=== PATIENT | female | born 1940 | race Caucasian/White ===

== ENCOUNTER 2022-06-09 10:53 | Inpatient (IN) ==
[2022-06-09 12:28] LABS: Basophils # 0.3 10*3/uL (0.0-0.2); Basophils % 1.6 % (0.0-0.8); Eosinophils # 0.1 10*3/uL (0.0-0.87); Eosinophils % 0.4 % (0.00-10.9); Hematocrit 33.3 VOL% (35.7-47.0); Hemoglobin 11.1 GM/DL (12.0-16.0); Immature Granulocytes % 4.1 %; Immature Granulocytes Absolute 0.66 #; Lymphocytes # 6.5 10*3/uL (1.4-4.0); Lymphocytes % 40.6 % (21.3-54.2); Mean Corpuscular HGB Conc 33.3 GM/DL (32-36); Mean Corpuscular Volume 110.6 FL (87-102); Mean Platelet Volume 11.5 FL (9.6-12.0); Monocytes # 3.1 10*3/uL (0.11-0.8); Monocytes % 19.6 % (1.7-12.7); NRBC # 0.73 10*3/uL; Neutrophils % 33.7 % (38.7-73.9); Platelet Count 200 T/CUMM (130-400); Red Blood Count 3.01 MC/CUMM (3.8-5.5); Red Cell Distribution Width 17.7 % (9.3-17.3); White Blood Count 15.9 T/CUMM (4-12)
[2022-06-09 12:43] LABS: Albumin 2.7 G/DL (3.4-5.0); Bilirubin,Total 0.8 MG/DL (0.20-1.00); Osmolality,Calculated 299.5 MOS/KG (273-304); Total Protein 6.4 G/DL (6.4-8.2)
[2022-06-09 12:53] LABS: Band Neutrophils 4 % (0-10); Lymphocytes 37 % (20-55); Metamyelocytes 3 %; Myelocytes 1 %; Nucleated Red Blood Cells 5 /100 WBC (0-5); Total Cells Counted 100
[2022-06-09 12:55] LABS: Platelet Estimate Normal
[2022-06-09 12:56] LABS: Anisocytosis 1+; Pappenheimer Bodies 1+
[2022-06-09 12:58] LABS: Polychromasia 1+
[2022-06-09 17:20] LABS: Free T4 (Free Thyroxine) 1.23 NG/DL (0.76-1.46)
[2022-06-09] MEDS ORDERED: ONDANSETRON 4 MG/2 ML VIAL IV PRN (17:26)
[2022-06-09] MEDS: cefTRIAXone 1,000 MG in SODIUM CHLORIDE 0.9% 100 ML IV SCH (18:50)
[2022-06-09] MEDS: AZITHROMYCIN INJ 500 MG in SODIUM CHLORIDE 0.9% 250 ML IV SCH (21:09)
[2022-06-09] MEDS: INSULIN GLARGINE 100 UNIT/ML SUBCUT SCH (21:10)
[2022-06-09] MEDS: TIMOLOL 0.5% OPH SOLN 5 ML BOTTLE BOTH EYES SCH (21:10)
[2022-06-09] MEDS: DOCUSATE SODIUM 100 MG CAPSULE PO SCH (21:10)
[2022-06-09] MEDS: SODIUM BICARBONATE 650 MG TABLET PO SCH (21:10)
[2022-06-09] MEDS: ENOXAPARIN 30 MG/0.3 ML SYRINGE SUBCUT SCH (21:10)
[2022-06-10 03:11] LABS: Bacteria,Urine Occasional /HPF (Few); Bilirubin,Urine Negative (Negative); Glucose,Urine (UA) 100 mg/dL (Negative); Ketones,Urine Negative (Negative); Mucus,Urine Occasional /LPF (Occasional); Nitrite,Urine Positive (Negative); Protein,Urine 100 mg/dL (Negative); RBC,Urine 34 /HPF (0-4); Urine Appearance Slightly Cloudy (Clear); Urine Color Yellow (Yellow); Urine Specific Gravity 1.015 (1.001-1.035); Urine pH 5.5 (4.5-8.0)
[2022-06-10 03:12] LABS: Blood, Urine Trace mg/dL (Negative); Urine Urobilinogen 0.2 eU/dL (<2.0)
[2022-06-10 05:10] LABS: Basophils # 0.2 10*3/uL (0.0-0.2); Basophils % 1.4 % (0.0-0.8); Eosinophils # 0.2 10*3/uL (0.0-0.87); Hematocrit 32.1 VOL% (35.7-47.0); Hemoglobin 10.7 GM/DL (12.0-16.0); Immature Granulocytes % 4.3 %; Lymphocytes # 7.3 10*3/uL (1.4-4.0); Lymphocytes % 44.2 % (21.3-54.2); Mean Corpuscular HGB Conc 33.3 GM/DL (32-36); Mean Corpuscular Volume 110.3 FL (87-102); Mean Platelet Volume 11.7 FL (9.6-12.0); NRBC # 0.61 10*3/uL; Neutrophils % 31.1 % (38.7-73.9); Platelet Count 187 T/CUMM (130-400); Red Blood Count 2.91 MC/CUMM (3.8-5.5); Red Cell Distribution Width 17.2 % (9.3-17.3); White Blood Count 16.5 T/CUMM (4-12)
[2022-06-10 05:27] LABS: Albumin 2.5 G/DL (3.4-5.0); Bilirubin,Total 0.6 MG/DL (0.20-1.00); Calcium 8.6 MG/DL (8.5-10.1); Osmolality,Calculated 299.5 MOS/KG (273-304); Potassium 4.2 MMOL/L (3.5-5.1); Total Protein 5.8 G/DL (6.4-8.2)
[2022-06-10 05:50] LABS: Eosinophils 2 % (0-10); Lymphocytes 52 % (20-55); Nucleated Red Blood Cells 3 /100 WBC (0-5); Platelet Estimate Adequate; Total Cells Counted 100
[2022-06-10] MEDS: LEVOTHYROXINE 88 MCG TABLET PO SCH (05:57)
[2022-06-10] MEDS: DOCUSATE SODIUM 100 MG CAPSULE PO SCH ×2 (10:02→21:41)
[2022-06-10] MEDS: PANTOPRAZOLE 40 MG TABLET PO SCH (10:02)
[2022-06-10] MEDS: ESCITALOPRAM 10 MG TABLET PO SCH (10:03)
[2022-06-10] MEDS: SODIUM BICARBONATE 650 MG TABLET PO SCH ×2 (10:04→21:41)
[2022-06-10] MEDS: ASPIRIN CHEW 81 MG TABLET PO SCH (11:16)
[2022-06-10] MEDS: TIMOLOL 0.5% OPH SOLN 5 ML BOTTLE BOTH EYES SCH ×2 (11:17→21:54)
[2022-06-10] MEDS ORDERED: DEXTROSE 10% 250 ML BAG IV PRN (13:12)
[2022-06-10] MEDS ORDERED: GLUCAGON 1 MG VIAL IM PRN (13:12)
[2022-06-10] MEDS: cefTRIAXone 1,000 MG in SODIUM CHLORIDE 0.9% 100 ML IV SCH (17:29)
[2022-06-10] MEDS: INSULIN LISPRO 100 UNIT/ML SUBCUT SCH ×2 (17:32→21:40)
[2022-06-10] MEDS: INSULIN GLARGINE 100 UNIT/ML SUBCUT SCH (21:40)
[2022-06-10] MEDS: AZITHROMYCIN INJ 500 MG in SODIUM CHLORIDE 0.9% 250 ML IV SCH (21:44)
[2022-06-10] MEDS: ENOXAPARIN 30 MG/0.3 ML SYRINGE SUBCUT SCH (21:54)
[2022-06-11 04:55] LABS: Basophils # 0.3 10*3/uL (0.0-0.2); Basophils % 1.4 % (0.0-0.8); Eosinophils # 0.3 10*3/uL (0.0-0.87); Eosinophils % 1.5 % (0.00-10.9); Hematocrit 32.9 VOL% (35.7-47.0); Hemoglobin 10.8 GM/DL (12.0-16.0); Immature Granulocytes % 4.1 %; Immature Granulocytes Absolute 0.73 #; Lymphocytes # 8.1 10*3/uL (1.4-4.0); Lymphocytes % 45.6 % (21.3-54.2); Mean Corpuscular HGB Conc 32.8 GM/DL (32-36); Mean Corpuscular Volume 111.9 FL (87-102); Mean Platelet Volume 11.7 FL (9.6-12.0); Monocytes # 3.1 10*3/uL (0.11-0.8); Monocytes % 17.3 % (1.7-12.7); NRBC # 0.57 10*3/uL; Neutrophils % 30.1 % (38.7-73.9); Platelet Count 198 T/CUMM (130-400); Red Blood Count 2.94 MC/CUMM (3.8-5.5); Red Cell Distribution Width 17.6 % (9.3-17.3); White Blood Count 17.7 T/CUMM (4-12)
[2022-06-11 05:21] LABS: Albumin 2.3 G/DL (3.4-5.0); Bilirubin,Total 0.5 MG/DL (0.20-1.00); Calcium 7.8 MG/DL (8.5-10.1); Osmolality,Calculated 296.3 MOS/KG (273-304); Potassium 4.1 MMOL/L (3.5-5.1); Total Protein 5.6 G/DL (6.4-8.2)
[2022-06-11 05:27] LABS: Eosinophils 3 % (0-10); Lymphocytes 48 % (20-55); Nucleated Red Blood Cells 1 /100 WBC (0-5); Platelet Estimate Adequate; Total Cells Counted 100
[2022-06-11] MEDS: LEVOTHYROXINE 88 MCG TABLET PO SCH (06:27)
[2022-06-11] MEDS: ASPIRIN CHEW 81 MG TABLET PO SCH (10:33)
[2022-06-11] MEDS: SODIUM BICARBONATE 650 MG TABLET PO SCH (10:33)
[2022-06-11] MEDS: POLYETHYLENE GLYCOL POWDER 17 GM PACK PO SCH (10:33)
[2022-06-11] MEDS: DOCUSATE SODIUM 100 MG CAPSULE PO SCH ×2 (10:34→21:14)
[2022-06-11] MEDS: INSULIN LISPRO 100 UNIT/ML SUBCUT SCH ×4 (10:35→21:13)
[2022-06-11] MEDS: TIMOLOL 0.5% OPH SOLN 5 ML BOTTLE BOTH EYES SCH ×2 (10:36→21:14)
[2022-06-11] MEDS: PANTOPRAZOLE 40 MG TABLET PO SCH (10:43)
[2022-06-11] MEDS: ESCITALOPRAM 10 MG TABLET PO SCH (10:43)
[2022-06-11] MEDS ORDERED: BISACODYL 10 MG SUPP RECTAL ONE (14:27)
[2022-06-11] MEDS: cefTRIAXone 1,000 MG in SODIUM CHLORIDE 0.9% 100 ML IV SCH (19:03)
[2022-06-11] MEDS: ENOXAPARIN 30 MG/0.3 ML SYRINGE SUBCUT SCH (21:13)
[2022-06-11] MEDS: INSULIN GLARGINE 100 UNIT/ML SUBCUT SCH (21:13)
[2022-06-11] MEDS: AZITHROMYCIN INJ 500 MG in SODIUM CHLORIDE 0.9% 250 ML IV SCH (21:13)
[2022-06-12 05:38] LABS: Basophils # 0.3 10*3/uL (0.0-0.2); Basophils % 1.3 % (0.0-0.8); Eosinophils # 0.3 10*3/uL (0.0-0.87); Eosinophils % 1.3 % (0.00-10.9); Hematocrit 32.9 VOL% (35.7-47.0); Hemoglobin 10.8 GM/DL (12.0-16.0); Immature Granulocytes % 4.5 %; Immature Granulocytes Absolute 0.92 #; Lymphocytes # 9.7 10*3/uL (1.4-4.0); Lymphocytes % 47.7 % (21.3-54.2); Mean Corpuscular HGB Conc 32.8 GM/DL (32-36); Mean Corpuscular Volume 108.9 FL (87-102); Mean Platelet Volume 11.3 FL (9.6-12.0); Monocytes # 3.3 10*3/uL (0.11-0.8); Monocytes % 16.1 % (1.7-12.7); Neutrophils % 29.1 % (38.7-73.9); Platelet Count 218 T/CUMM (130-400); Red Blood Count 3.02 MC/CUMM (3.8-5.5); Red Cell Distribution Width 17.5 % (9.3-17.3); White Blood Count 20.4 T/CUMM (4-12)
[2022-06-12 05:51] LABS: Albumin 2.5 G/DL (3.4-5.0); Bilirubin,Total 0.5 MG/DL (0.20-1.00); Calcium 7.5 MG/DL (8.5-10.1); Osmolality,Calculated 286.7 MOS/KG (273-304); Potassium 3.9 MMOL/L (3.5-5.1); Total Protein 5.7 G/DL (6.4-8.2)
[2022-06-12] MEDS: LEVOTHYROXINE 88 MCG TABLET PO SCH (05:53)
[2022-06-12 06:17] LABS: Eosinophils 3 % (0-10); Hypochromia Slight; Lymphocytes 51 % (20-55); Nucleated Red Blood Cells 3 /100 WBC (0-5); Platelet Estimate Adequate; Total Cells Counted 100
[2022-06-12 06:18] LABS: Macrocytosis Slight
[2022-06-12] MEDS: INSULIN LISPRO 100 UNIT/ML SUBCUT SCH ×4 (07:30→21:18)
[2022-06-12] MEDS: POLYETHYLENE GLYCOL POWDER 17 GM PACK PO SCH (11:58)
[2022-06-12] MEDS: ESCITALOPRAM 10 MG TABLET PO SCH (11:58)
[2022-06-12] MEDS: DOCUSATE SODIUM 100 MG CAPSULE PO SCH ×2 (11:58→21:17)
[2022-06-12] MEDS: ASPIRIN CHEW 81 MG TABLET PO SCH (11:58)
[2022-06-12] MEDS: PANTOPRAZOLE 40 MG TABLET PO SCH (11:59)
[2022-06-12] MEDS: TIMOLOL 0.5% OPH SOLN 5 ML BOTTLE BOTH EYES SCH ×2 (11:59→21:17)
[2022-06-12] MEDS: CEFEPIME 1,000 MG in SODIUM CHLORIDE 0.9% 100 ML IV SCH ×2 (11:59→21:17)
[2022-06-12] MEDS: ENOXAPARIN 30 MG/0.3 ML SYRINGE SUBCUT SCH (21:17)
[2022-06-12] MEDS: INSULIN GLARGINE 100 UNIT/ML SUBCUT SCH (21:17)
[2022-06-13 04:37] LABS: Basophils # 0.4 10*3/uL (0.0-0.2); Eosinophils # 0.3 10*3/uL (0.0-0.87); Eosinophils % 1.4 % (0.00-10.9); Hematocrit 34.2 VOL% (35.7-47.0); Immature Granulocytes % 5.6 %; Immature Granulocytes Absolute 1.02 #; Lymphocytes # 7.8 10*3/uL (1.4-4.0); Mean Corpuscular HGB Conc 32.2 GM/DL (32-36); Mean Corpuscular Volume 112.1 FL (87-102); Monocytes % 16.5 % (1.7-12.7); NRBC # 0.43 10*3/uL; Neutrophils % 31.5 % (38.7-73.9); Platelet Count 216 T/CUMM (130-400); Red Blood Count 3.05 MC/CUMM (3.8-5.5); Red Cell Distribution Width 17.7 % (9.3-17.3); White Blood Count 18.2 T/CUMM (4-12)
[2022-06-13 04:52] LABS: Calcium 6.9 MG/DL (8.5-10.1); Osmolality,Calculated 295.4 MOS/KG (273-304); Potassium 4.3 MMOL/L (3.5-5.1)
[2022-06-13 05:04] LABS: Lymphocytes 41 % (20-55); Nucleated Red Blood Cells 3 /100 WBC (0-5); Platelet Estimate Adequate; Total Cells Counted 100
[2022-06-13 05:05] LABS: Hypochromia Slight; Microcytosis Slight
[2022-06-13] MEDS: LEVOTHYROXINE 88 MCG TABLET PO SCH (05:14)
[2022-06-13] MEDS: INSULIN LISPRO 100 UNIT/ML SUBCUT SCH ×4 (07:40→20:56)
[2022-06-13] MEDS ORDERED: LACTATED RINGERS 1,000 ML IV SCH (08:30)
[2022-06-13] MEDS ORDERED: SEVOFLURANE 1 UNIT/15 MINUTE INH ONE (08:48)
[2022-06-13] MEDS ORDERED: fentaNYL 100 MCG/2 ML VIAL ONE (08:48)
[2022-06-13] MEDS ORDERED: propofoL 200 MG/20 ML VIAL IV ONE (08:48)
[2022-06-13] MEDS ORDERED: ONDANSETRON 4 MG/2 ML VIAL ONE (08:48)
[2022-06-13] MEDS ORDERED: LIDOCAINE 2% 5 ML VIAL ONE (08:48)
[2022-06-13] MEDS ORDERED: NEOMYCIN/POLYMYXIN IRRIG SOLN 1 ML AMP BLADDERIRR ONE (08:53)
[2022-06-13] MEDS ORDERED: PHENYLEPHRINE 1 MG/10 ML SYRINGE IV ONE (09:06)
[2022-06-13] MEDS: POLYETHYLENE GLYCOL POWDER 17 GM PACK PO SCH (13:07)
[2022-06-13] MEDS: ASPIRIN CHEW 81 MG TABLET PO SCH (13:08)
[2022-06-13] MEDS: DOCUSATE SODIUM 100 MG CAPSULE PO SCH ×2 (13:08→20:55)
[2022-06-13] MEDS: PANTOPRAZOLE 40 MG TABLET PO SCH (13:09)
[2022-06-13] MEDS: ESCITALOPRAM 10 MG TABLET PO SCH (13:09)
[2022-06-13] MEDS: TIMOLOL 0.5% OPH SOLN 5 ML BOTTLE BOTH EYES SCH ×2 (13:11→21:40)
[2022-06-13] MEDS: CEFEPIME 1,000 MG in SODIUM CHLORIDE 0.9% 100 ML IV SCH ×2 (13:12→20:55)
[2022-06-13] MEDS: INSULIN GLARGINE 100 UNIT/ML SUBCUT SCH (20:56)
[2022-06-13] MEDS: ENOXAPARIN 30 MG/0.3 ML SYRINGE SUBCUT SCH (20:56)
[2022-06-13] MEDS: NYSTATIN CREAM 15 GM TUBE TOP SCH (21:40)
[2022-06-14 04:24] LABS: Basophils # 0.3 10*3/uL (0.0-0.2); Basophils % 1.3 % (0.0-0.8); Eosinophils # 0.3 10*3/uL (0.0-0.87); Eosinophils % 1.3 % (0.00-10.9); Hematocrit 31.6 VOL% (35.7-47.0); Hemoglobin 10.6 GM/DL (12.0-16.0); Immature Granulocytes % 5.4 %; Immature Granulocytes Absolute 1.15 #; Lymphocytes # 8.1 10*3/uL (1.4-4.0); Lymphocytes % 37.8 % (21.3-54.2); Mean Corpuscular HGB Conc 33.5 GM/DL (32-36); Mean Corpuscular Volume 110.1 FL (87-102); Mean Platelet Volume 11.4 FL (9.6-12.0); Monocytes # 3.5 10*3/uL (0.11-0.8); Monocytes % 16.1 % (1.7-12.7); Neutrophils % 38.1 % (38.7-73.9); Platelet Count 217 T/CUMM (130-400); Red Blood Count 2.87 MC/CUMM (3.8-5.5); Red Cell Distribution Width 17.5 % (9.3-17.3); White Blood Count 21.5 T/CUMM (4-12)
[2022-06-14 04:39] LABS: Calcium 6.7 MG/DL (8.5-10.1); Osmolality,Calculated 292.7 MOS/KG (273-304); Potassium 4.1 MMOL/L (3.5-5.1)
[2022-06-14 05:09] LABS: Eosinophils 2 % (0-10); Lymphocytes 40 % (20-55); Nucleated Red Blood Cells 2 /100 WBC (0-5); Platelet Estimate Normal; Total Cells Counted 100
[2022-06-14] MEDS: LEVOTHYROXINE 88 MCG TABLET PO SCH (06:21)
[2022-06-14] MEDS: CEFEPIME 1,000 MG in SODIUM CHLORIDE 0.9% 100 ML IV SCH ×2 (07:38→20:32)
[2022-06-14] MEDS: INSULIN LISPRO 100 UNIT/ML SUBCUT SCH ×4 (09:48→20:30)
[2022-06-14] MEDS: POLYETHYLENE GLYCOL POWDER 17 GM PACK PO SCH (10:14)
[2022-06-14] MEDS: PANTOPRAZOLE 40 MG TABLET PO SCH (10:15)
[2022-06-14] MEDS: ESCITALOPRAM 10 MG TABLET PO SCH (10:15)
[2022-06-14] MEDS: ASPIRIN CHEW 81 MG TABLET PO SCH (10:15)
[2022-06-14] MEDS: DOCUSATE SODIUM 100 MG CAPSULE PO SCH ×2 (10:15→20:30)
[2022-06-14] MEDS: TIMOLOL 0.5% OPH SOLN 5 ML BOTTLE BOTH EYES SCH ×2 (10:17→20:32)
[2022-06-14] MEDS: NYSTATIN CREAM 15 GM TUBE TOP SCH ×2 (10:17→20:32)
[2022-06-14] MEDS: SIMETHICONE CHEW 125 MG TABLET PO PRN (14:57)
[2022-06-14] MEDS: INSULIN GLARGINE 100 UNIT/ML SUBCUT SCH (20:31)
[2022-06-14] MEDS: ENOXAPARIN 30 MG/0.3 ML SYRINGE SUBCUT SCH (20:31)
[2022-06-15] MEDS: LEVOTHYROXINE 88 MCG TABLET PO SCH (05:00)
[2022-06-15 05:51] LABS: Basophils # 0.4 10*3/uL (0.0-0.2); Basophils % 1.7 % (0.0-0.8); Eosinophils # 0.3 10*3/uL (0.0-0.87); Eosinophils % 1.4 % (0.00-10.9); Hemoglobin 11.3 GM/DL (12.0-16.0); Immature Granulocytes % 5.4 %; Immature Granulocytes Absolute 1.28 #; Lymphocytes # 8.8 10*3/uL (1.4-4.0); Lymphocytes % 37.4 % (21.3-54.2); Mean Corpuscular HGB Conc 33.2 GM/DL (32-36); Mean Platelet Volume 11.8 FL (9.6-12.0); Monocytes # 4.1 10*3/uL (0.11-0.8); Monocytes % 17.2 % (1.7-12.7); Neutrophils % 36.9 % (38.7-73.9); Platelet Count 233 T/CUMM (130-400); Red Blood Count 3.12 MC/CUMM (3.8-5.5); Red Cell Distribution Width 17.3 % (9.3-17.3); White Blood Count 23.6 T/CUMM (4-12)
[2022-06-15 06:09] LABS: Calcium 6.8 MG/DL (8.5-10.1); Osmolality,Calculated 290.7 MOS/KG (273-304); Potassium 4.3 MMOL/L (3.5-5.1)
[2022-06-15 06:15] LABS: Eosinophils 1 % (0-10); Lymphocytes 37 % (20-55); Nucleated Red Blood Cells 1 /100 WBC (0-5); Platelet Estimate Adequate; Total Cells Counted 100
[2022-06-15] MEDS: INSULIN LISPRO 100 UNIT/ML SUBCUT SCH ×4 (08:06→20:38)
[2022-06-15] MEDS ORDERED: AZITHROMYCIN INJ 500 MG in SODIUM CHLORIDE 0.9% 250 ML IV SCH (09:00)
[2022-06-15] MEDS: ESCITALOPRAM 10 MG TABLET PO SCH (09:16)
[2022-06-15] MEDS: DOCUSATE SODIUM 100 MG CAPSULE PO SCH ×2 (09:16→20:33)
[2022-06-15] MEDS: ASPIRIN CHEW 81 MG TABLET PO SCH (09:16)
[2022-06-15] MEDS: SIMETHICONE CHEW 125 MG TABLET PO PRN (09:16)
[2022-06-15] MEDS: PANTOPRAZOLE 40 MG TABLET PO SCH (09:16)
[2022-06-15] MEDS: CEFEPIME 1,000 MG in SODIUM CHLORIDE 0.9% 100 ML IV SCH (09:17)
[2022-06-15] MEDS: POLYETHYLENE GLYCOL POWDER 17 GM PACK PO SCH (09:17)
[2022-06-15] MEDS: NYSTATIN CREAM 15 GM TUBE TOP SCH ×2 (09:19→20:39)
[2022-06-15] MEDS: TIMOLOL 0.5% OPH SOLN 5 ML BOTTLE BOTH EYES SCH ×2 (09:19→20:39)
[2022-06-15] MEDS ORDERED: LEVOFLOXACIN INJ 750 MG/150 ML PREMIX IV SCH (12:00)
[2022-06-15] MEDS: PIPERACILLIN/TAZOBACTAM 3,375 MG in SODIUM CHLORIDE 0.9% 100 ML IV SCH ×2 (14:36→21:43)
[2022-06-15] MEDS ORDERED: CALCIUM CARBONATE CHEW 500 MG TABLET PO PRN (15:17)
[2022-06-15] MEDS: ENOXAPARIN 30 MG/0.3 ML SYRINGE SUBCUT SCH (20:33)
[2022-06-15] MEDS: INSULIN GLARGINE 100 UNIT/ML SUBCUT SCH (20:34)
[2022-06-15] MEDS ORDERED: FLUCONAZOLE INJ 200 MG/100 ML PREMIX IV ONE (21:00)
[2022-06-15] MEDS ORDERED: LEVOFLOXACIN INJ 750 MG/150 ML PREMIX IV ONE (21:00)
[2022-06-16] MEDS: PIPERACILLIN/TAZOBACTAM 3,375 MG in SODIUM CHLORIDE 0.9% 100 ML IV SCH ×2 (05:05→22:11)
[2022-06-16] MEDS: LEVOTHYROXINE 88 MCG TABLET PO SCH (05:06)
[2022-06-16 05:18] LABS: Bilirubin,Urine Negative (Negative); Blood, Urine Large mg/dL (Negative); Glucose,Urine (UA) 250 mg/dL (Negative); Ketones,Urine Negative (Negative); Nitrite,Urine Negative (Negative); Protein,Urine >=300 mg/dL (Negative); RBC,Urine 691 /HPF (0-4); Urine Appearance Cloudy (Clear); Urine Color Dark yellow (Yellow); Urine Specific Gravity 1.025 (1.001-1.035); Urine Urobilinogen 0.2 eU/dL (<2.0); Urine pH 5.5 (4.5-8.0)
[2022-06-16 06:10] LABS: Basophils # 0.4 10*3/uL (0.0-0.2); Basophils % 1.7 % (0.0-0.8); Eosinophils # 0.2 10*3/uL (0.0-0.87); Hemoglobin 10.8 GM/DL (12.0-16.0); Immature Granulocytes % 5.8 %; Lymphocytes # 8.5 10*3/uL (1.4-4.0); Lymphocytes % 35.3 % (21.3-54.2); Mean Corpuscular HGB Conc 32.7 GM/DL (32-36); Mean Corpuscular Volume 109.6 FL (87-102); Mean Platelet Volume 11.6 FL (9.6-12.0); Monocytes # 4.5 10*3/uL (0.11-0.8); Monocytes % 18.7 % (1.7-12.7); NRBC # 0.32 10*3/uL; Neutrophils % 37.5 % (38.7-73.9); Platelet Count 237 T/CUMM (130-400); Red Blood Count 3.01 MC/CUMM (3.8-5.5); Red Cell Distribution Width 17.3 % (9.3-17.3); White Blood Count 24.1 T/CUMM (4-12)
[2022-06-16 06:21] LABS: Calcium 6.5 MG/DL (8.5-10.1); Osmolality,Calculated 295.5 MOS/KG (273-304); Potassium 4.5 MMOL/L (3.5-5.1)
[2022-06-16 07:00] LABS: Eosinophils 2 % (0-10); Lymphocytes 26 % (20-55); Nucleated Red Blood Cells 1 /100 WBC (0-5); Platelet Estimate Adequate; Total Cells Counted 100
[2022-06-16] MEDS: ASPIRIN CHEW 81 MG TABLET PO SCH (10:49)
[2022-06-16] MEDS: POLYETHYLENE GLYCOL POWDER 17 GM PACK PO SCH (10:49)
[2022-06-16] MEDS: PANTOPRAZOLE 40 MG TABLET PO SCH (10:49)
[2022-06-16] MEDS: ESCITALOPRAM 10 MG TABLET PO SCH (10:49)
[2022-06-16] MEDS: DOCUSATE SODIUM 100 MG CAPSULE PO SCH (10:49)
[2022-06-16] MEDS: NYSTATIN CREAM 15 GM TUBE TOP SCH ×2 (10:52→22:12)
[2022-06-16] MEDS: TIMOLOL 0.5% OPH SOLN 5 ML BOTTLE BOTH EYES SCH ×2 (10:52→22:10)
[2022-06-16] MEDS ORDERED: ACETAMINOPHEN 650 MG SUPP RECTAL PRN (10:53)
[2022-06-16] MEDS: INSULIN LISPRO 100 UNIT/ML SUBCUT SCH ×4 (11:02→22:22)
[2022-06-16] MEDS ORDERED: LEVOFLOXACIN INJ 750 MG/150 ML PREMIX IV ONE (17:00)
[2022-06-16] MEDS: ENOXAPARIN 30 MG/0.3 ML SYRINGE SUBCUT SCH (22:11)
[2022-06-16] MEDS: INSULIN GLARGINE 100 UNIT/ML SUBCUT SCH (22:12)
[2022-06-17] MEDS: PIPERACILLIN/TAZOBACTAM 3,375 MG in SODIUM CHLORIDE 0.9% 100 ML IV SCH ×3 (04:48→22:22)
[2022-06-17] MEDS: LEVOTHYROXINE 88 MCG TABLET PO SCH (06:02)
[2022-06-17 08:43] LABS: Basophils # 0.4 10*3/uL (0.0-0.2); Basophils % 1.5 % (0.0-0.8); Eosinophils # 0.3 10*3/uL (0.0-0.87); Eosinophils % 1.1 % (0.00-10.9); Hematocrit 36.1 VOL% (35.7-47.0); Hemoglobin 11.7 GM/DL (12.0-16.0); Immature Granulocytes % 6.3 %; Immature Granulocytes Absolute 1.59 #; Lymphocytes # 7.4 10*3/uL (1.4-4.0); Lymphocytes % 29.7 % (21.3-54.2); Mean Corpuscular HGB Conc 32.4 GM/DL (32-36); Mean Corpuscular Volume 109.7 FL (87-102); Mean Platelet Volume 10.7 FL (9.6-12.0); Monocytes # 4.8 10*3/uL (0.11-0.8); Monocytes % 19.3 % (1.7-12.7); NRBC # 0.31 10*3/uL; Neutrophils % 42.1 % (38.7-73.9); Platelet Count 231 T/CUMM (130-400); Red Blood Count 3.29 MC/CUMM (3.8-5.5); Red Cell Distribution Width 17.4 % (9.3-17.3); White Blood Count 25.1 T/CUMM (4-12)
[2022-06-17 09:01] LABS: Albumin 2.3 G/DL (3.4-5.0); Bilirubin,Total 0.7 MG/DL (0.20-1.00); Calcium 6.6 MG/DL (8.5-10.1); Osmolality,Calculated 285.8 MOS/KG (273-304); Potassium 5.1 MMOL/L (3.5-5.1); Total Protein 5.7 G/DL (6.4-8.2)
[2022-06-17 09:03] LABS: Eosinophils 4 % (0-10); Lymphocytes 34 % (20-55); Nucleated Red Blood Cells 2 /100 WBC (0-5); Platelet Estimate Adequate; Total Cells Counted 100
[2022-06-17] MEDS: INSULIN LISPRO 100 UNIT/ML SUBCUT SCH ×4 (10:35→22:22)
[2022-06-17] MEDS: NYSTATIN CREAM 15 GM TUBE TOP SCH ×2 (10:36→22:23)
[2022-06-17] MEDS: TIMOLOL 0.5% OPH SOLN 5 ML BOTTLE BOTH EYES SCH ×2 (10:36→22:23)
[2022-06-17] MEDS ORDERED: LEVOFLOXACIN INJ 500 MG/100 ML PREMIX IV SCH (21:00)
[2022-06-17] MEDS: INSULIN GLARGINE 100 UNIT/ML SUBCUT SCH (22:23)
[2022-06-17] MEDS: ENOXAPARIN 30 MG/0.3 ML SYRINGE SUBCUT SCH (22:23)
[2022-06-17] MEDS: MORPHINE 10 MG/5 ML UDCUP PO PRN (22:29)
[2022-06-18 04:56] LABS: Basophils # 0.4 10*3/uL (0.0-0.2); Basophils % 1.6 % (0.0-0.8); Eosinophils # 0.3 10*3/uL (0.0-0.87); Eosinophils % 1.3 % (0.00-10.9); Hematocrit 33.1 VOL% (35.7-47.0); Hemoglobin 10.9 GM/DL (12.0-16.0); Immature Granulocytes Absolute 1.44 #; Lymphocytes # 7.4 10*3/uL (1.4-4.0); Lymphocytes % 30.5 % (21.3-54.2); Mean Corpuscular HGB Conc 32.9 GM/DL (32-36); Mean Corpuscular Volume 109.6 FL (87-102); Mean Platelet Volume 11.3 FL (9.6-12.0); Monocytes # 3.8 10*3/uL (0.11-0.8); Monocytes % 15.6 % (1.7-12.7); NRBC # 0.27 10*3/uL; Platelet Count 233 T/CUMM (130-400); Red Blood Count 3.02 MC/CUMM (3.8-5.5); Red Cell Distribution Width 17.3 % (9.3-17.3); White Blood Count 24.1 T/CUMM (4-12)
[2022-06-18 05:21] LABS: Eosinophils 3 % (0-10); Lymphocytes 35 % (20-55); Platelet Estimate Adequate; Total Cells Counted 100
[2022-06-18 05:41] LABS: Bilirubin,Total 0.6 MG/DL (0.20-1.00); Calcium 6.4 MG/DL (8.5-10.1); Potassium 4.9 MMOL/L (3.5-5.1); Total Protein 5.9 G/DL (6.4-8.2)
[2022-06-18] MEDS: LEVOTHYROXINE 88 MCG TABLET PO SCH (05:56)
[2022-06-18] MEDS: PIPERACILLIN/TAZOBACTAM 3,375 MG in SODIUM CHLORIDE 0.9% 100 ML IV SCH ×3 (05:56→22:07)
[2022-06-18] MEDS: INSULIN LISPRO 100 UNIT/ML SUBCUT SCH ×4 (09:13→22:08)
[2022-06-18] MEDS: TIMOLOL 0.5% OPH SOLN 5 ML BOTTLE BOTH EYES SCH ×2 (09:15→22:06)
[2022-06-18] MEDS: NYSTATIN CREAM 15 GM TUBE TOP SCH ×2 (10:42→22:06)
[2022-06-18] MEDS: MIDODRINE 2.5 MG TABLET PO SCH ×2 (15:54→22:07)
[2022-06-18] MEDS: POLYETHYLENE GLYCOL POWDER 17 GM PACK PO SCH (18:31)
[2022-06-18] MEDS: ENOXAPARIN 30 MG/0.3 ML SYRINGE SUBCUT SCH (22:07)
[2022-06-18] MEDS: INSULIN GLARGINE 100 UNIT/ML SUBCUT SCH (22:08)
[2022-06-19 04:45] LABS: Basophils # 0.4 10*3/uL (0.0-0.2); Basophils % 1.6 % (0.0-0.8); Eosinophils # 0.3 10*3/uL (0.0-0.87); Eosinophils % 1.4 % (0.00-10.9); Hematocrit 30.9 VOL% (35.7-47.0); Hemoglobin 10.2 GM/DL (12.0-16.0); Immature Granulocytes % 5.8 %; Immature Granulocytes Absolute 1.25 #; Lymphocytes # 6.6 10*3/uL (1.4-4.0); Lymphocytes % 30.4 % (21.3-54.2); Mean Corpuscular Volume 108.8 FL (87-102); Mean Platelet Volume 11.4 FL (9.6-12.0); Monocytes # 3.1 10*3/uL (0.11-0.8); Monocytes % 14.2 % (1.7-12.7); NRBC # 0.23 10*3/uL; Neutrophils % 46.6 % (38.7-73.9); Platelet Count 230 T/CUMM (130-400); Red Blood Count 2.84 MC/CUMM (3.8-5.5); Red Cell Distribution Width 17.2 % (9.3-17.3); White Blood Count 21.7 T/CUMM (4-12)
[2022-06-19] MEDS: PIPERACILLIN/TAZOBACTAM 3,375 MG in SODIUM CHLORIDE 0.9% 100 ML IV SCH ×3 (05:00→21:12)
[2022-06-19 05:09] LABS: Albumin 1.9 G/DL (3.4-5.0); Bilirubin,Total 0.6 MG/DL (0.20-1.00); Calcium 6.2 MG/DL (8.5-10.1); Osmolality,Calculated 295.8 MOS/KG (273-304); Potassium 5.2 MMOL/L (3.5-5.1); Total Protein 5.5 G/DL (6.4-8.2)
[2022-06-19 05:27] LABS: Eosinophils 1 % (0-10); Lymphocytes 35 % (20-55); Total Cells Counted 100
[2022-06-19 05:28] LABS: Hypochromia Slight; Platelet Estimate Adequate
[2022-06-19] MEDS: LEVOTHYROXINE 88 MCG TABLET PO SCH (06:02)
[2022-06-19] MEDS: INSULIN LISPRO 100 UNIT/ML SUBCUT SCH ×4 (08:14→21:13)
[2022-06-19] MEDS: POLYETHYLENE GLYCOL POWDER 17 GM PACK PO SCH (09:54)
[2022-06-19] MEDS: MIDODRINE 2.5 MG TABLET PO SCH ×2 (09:54→21:13)
[2022-06-19] MEDS: TIMOLOL 0.5% OPH SOLN 5 ML BOTTLE BOTH EYES SCH ×2 (09:55→21:13)
[2022-06-19] MEDS: NYSTATIN CREAM 15 GM TUBE TOP SCH ×2 (09:56→21:13)
[2022-06-19] MEDS ORDERED: SODIUM POLYSTYRENE SULFATE 15 GM/60 ML BOTTLE PO ONE (11:46)
[2022-06-19 12:28] LABS: Glucose,Urine (UA) Negative (Negative); Protein,Urine >=300 mg/dL (Negative); RBC,Urine 54 /HPF (0-4); Urine Appearance Cloudy (Clear); Urine Color Yellow (Yellow); Urine Specific Gravity 1.015 (1.001-1.035)
[2022-06-19 12:29] LABS: Bilirubin,Urine Negative (Negative); Blood, Urine Large mg/dL (Negative); Ketones,Urine Negative (Negative); Nitrite,Urine Negative (Negative); Urine Urobilinogen 0.2 eU/dL (<2.0)
[2022-06-19] MEDS ORDERED: INSULIN REGULAR 10 UNIT, CALCIUM GLUCONATE 1,000 MG in DEXTROSE 10% 250 ML IV ONE (13:00)
[2022-06-19] MEDS: SODIUM ZIRCONIUM CYCLOSILICATE 10 GM PACK PO SCH ×2 (15:34→21:12)
[2022-06-19] MEDS: MORPHINE 10 MG/5 ML UDCUP PO PRN ×2 (15:53→21:13)
[2022-06-19] MEDS: INSULIN GLARGINE 100 UNIT/ML SUBCUT SCH (21:14)
[2022-06-19] MEDS: ENOXAPARIN 30 MG/0.3 ML SYRINGE SUBCUT SCH (21:14)
[2022-06-20] MEDS: PIPERACILLIN/TAZOBACTAM 3,375 MG in SODIUM CHLORIDE 0.9% 100 ML IV SCH ×2 (05:09→14:01)
[2022-06-20] MEDS: LEVOTHYROXINE 88 MCG TABLET PO SCH (05:10)
[2022-06-20 06:15] LABS: Basophils # 0.3 10*3/uL (0.0-0.2); Basophils % 1.4 % (0.0-0.8); Eosinophils # 0.2 10*3/uL (0.0-0.87); Hematocrit 31.4 VOL% (35.7-47.0); Hemoglobin 10.3 GM/DL (12.0-16.0); Immature Granulocytes % 5.5 %; Lymphocytes # 6.4 10*3/uL (1.4-4.0); Lymphocytes % 29.3 % (21.3-54.2); Mean Corpuscular HGB Conc 32.8 GM/DL (32-36); Mean Corpuscular Volume 108.7 FL (87-102); Mean Platelet Volume 11.5 FL (9.6-12.0); Monocytes # 3.7 10*3/uL (0.11-0.8); Monocytes % 16.8 % (1.7-12.7); NRBC # 0.27 10*3/uL; Platelet Count 224 T/CUMM (130-400); Red Blood Count 2.89 MC/CUMM (3.8-5.5); Red Cell Distribution Width 17.2 % (9.3-17.3); White Blood Count 21.9 T/CUMM (4-12)
[2022-06-20 06:49] LABS: Albumin 1.9 G/DL (3.4-5.0); Bilirubin,Total 0.6 MG/DL (0.20-1.00); Calcium 6.4 MG/DL (8.5-10.1); Osmolality,Calculated 308.5 MOS/KG (273-304); Potassium 4.7 MMOL/L (3.5-5.1); Total Protein 5.9 G/DL (6.4-8.2)
[2022-06-20 07:01] LABS: Anisocytosis 2+; Atypical Lymphocytes Few; Band Neutrophils 1 % (0-10); Burr Cells Few; Eosinophils 3 % (0-10); Lymphocytes 33 % (20-55); Myelocytes 1 %; Nucleated Red Blood Cells 1 /100 WBC (0-5); Platelet Estimate Normal; Total Cells Counted 100
[2022-06-20 07:02] LABS: Basophilic Stippling Slight; Macrocytosis 1+; Ovalocytes Few; Poikilocytosis Slight
[2022-06-20] MEDS ORDERED: ACETAMINOPHEN 325 MG/10.15 ML UDCUP PO PRN (08:14)
[2022-06-20] MEDS: POLYETHYLENE GLYCOL POWDER 17 GM PACK PO SCH (08:27)
[2022-06-20] MEDS: MIDODRINE 2.5 MG TABLET PO SCH (08:27)
[2022-06-20] MEDS: INSULIN LISPRO 100 UNIT/ML SUBCUT SCH ×2 (08:28→11:27)
[2022-06-20] MEDS: TIMOLOL 0.5% OPH SOLN 5 ML BOTTLE BOTH EYES SCH (08:29)
[2022-06-20] MEDS: NYSTATIN CREAM 15 GM TUBE TOP SCH (08:29)
[2022-06-20 11:21] VITALS: BP 68/34
== END 2022-06-20 16:25 | disposition hospice, home (50) | DRG 659 ==
LOC: N.ED 10:53 → SUATTDRO 17:25 → N.EDINP 17:25 → N.TELES 18:47
PROVIDERS: ADMIT Internal Medicine; ATTEND Internal Medicine